=== PATIENT | male | born 1975 | race Caucasian/White ===

== ENCOUNTER 2021-07-07 11:13 | Outpatient (CLI) | payer MEDICARE, MEDICAID | END 2021-07-07 11:14 | disposition home or self-care (01) | LOC: CSHCT 11:13 | PROVIDERS: ATTEND Orthopaedic Surgery Orthopaedic Surgery of the Spine | DX: T84.296A Other mechanical complication of internal fixation device of vertebrae, initial encounter (principal); M25.852 Other specified joint disorders, left hip; M25.851 Other specified joint disorders, right hip; M16.0 Bilateral primary osteoarthritis of hip; Z98.890 Other specified postprocedural states | CPT/HCPCS: 72131; 72192 ==